=== PATIENT | male | born 1985 | race African-American/Black ===

== ENCOUNTER 2016-07-24 22:28 | Emergency (ER) | payer OTHER ==
--- NOTE | ~2016-07-24 | CR4 ---
[facility] A Service of [facility] RADIOLOGY TEXT RESULTS PATIENT: JACKEILN LEPE LOCATION: [facility] : 89 UNIT #: [id number] AGE: [address]: ALEX FULLER APRN SEX: M ORDER DR: [id number] [place], [place] [address] [id number] MR#: [id number] Acc #: [id number] NAME: JACKELIN LEPE. : 1985 SEX: M STUDY DATE/TIME: 07/24/2016 23:47 UNIT: [facility] ROOM: STUDY DESCRIPTION: CR Abdomen Flat Upright or Dec Attending Physician: Alex Fuller Aprn Ordering Physician: Alex Fuller Aprn Primary Care Physician: Primary Care Physician No MEDICAL IMAGING REPORT This report is preliminary unless electronic signature is present EXAM Flat and upright views of the abdomen. DATE 07/24/2016 HISTORY Left side abdominal pain for 1 day. COMPARISON None. FINDINGS Nonspecific but nonobstructive bowel gas pattern. No free air or pneumatosis is seen. Benign-appearing calcifications are present in the pelvis bilaterally, favored to represent phleboliths. Imaged lung bases are clear. No acute osseous abnormalities. IMPRESSION 1. Normal supine and upright views of the abdomen. Dictated by... Heather Bhakta M.D. THIS IS AN ELECTRONICALLY VERIFIED REPORT Heather Bhakta M.D. at 07/25/2016 10:06 PM [facility] TD: 07/25/2016 04:13 JOB #: [id number] MEDICAL IMAGING REPORT [facility] A Service of [facility] RADIOLOGY TEXT RESULTS PATIENT: JACKELIN LEPE LOCATION: [facility] : 89 UNIT #: [id number] AGE: [address]: ALEX FULLER APRN SEX: M ORDER DR: Page 1 of 1 COPY
[~2016-07-24 22:28] MED LIST: IBUPROFEN800 MG PO; KETOPROFEN PO; LORTAB 5/500 TA1 TA1 PO
[2016-07-24 23:31] LABS: BASOPHIL% 0.9 % (0-2.5); DIFF IND NO; EOSINOPHIL% 0.4 % (0.0-7.0); HEMATOCRIT 40.5 % (38.0-50.0); HEMOGLOBIN 13.7 gm/dL (13.0-16.0); LYMPHOCYTE# 1.9 X10e3 (1.0-3.5); LYMPHOCYTE% 47.4 % (17.0-45.0); MEAN CELL VOLUME 94.4 FL (83-96); MEAN CORPUSCULAR HGB CONC 33.9 g/dL (30-36); MONOCYTE# 0.4 X10e3 (0-1.0); MONOCYTE% 9.5 % (3.0-12.0); NEUTROPHIL# 1.7 X10e3 (1.5-7.1); NEUTROPHIL% 41.8 % (40-75); PLATELET COUNT 231 X10e3 (140-420); RED BLOOD COUNT 4.29 X10e (3.90-5.60); WHITE BLOOD COUNT 4.1 X10e3 (4.0-10.5)
[2016-07-24 23:53] LABS: BUN/CREATININE RATIO 13.33; CALCIUM SERUM 8.9 mg/dL (8.4-10.2); CREATININE SERUM 0.9 mg/dL (0.6-1.4); GLOM FILT RATE Estimated 134.2 mL/min (>60); POTASSIUM 3.1 mmol/L (3.5-5.1)
[2016-07-25 00:52] LABS: URINE APPEARANCE CLOUDY; URINE BILIRUBIN NEG (NEG); URINE BLOOD NEG (NEG); URINE COLOR YELLOW; URINE GLUCOSE NEG (NEG); URINE KETONE NEG (NEG); URINE LEUKOCYTE ESTERASE NEG (NEG); URINE NITRATE NEG (NEG); URINE PROTEIN NEG (NEG); URINE SPECIFIC GRAVITY 1.023 (1.003-1.035)
[2016-07-25 01:04] LABS: CULTURE INDICATED? NO
== END 2016-07-25 01:24 | disposition home or self-care (01) ==
LOC: CFTX 22:28
PROVIDERS: Nurse Practitioner Family
DX: R10.12 Left upper quadrant pain (principal); E87.6 Hypokalemia
CPT/HCPCS: 36415; 74020; 80048; 81003; 83690; 85025; 99284